=== PATIENT | female | born 1980 | race Caucasian/White ===

== ENCOUNTER 2018-05-10 06:33 | Emergency (ER) | payer SELFPAY ==
[2018-05-10 06:40] VITALS: TEMP 99
[2018-05-10] MEDS ORDERED: DiphenhydrAMINE 50 mg/ml Inj IVP STA (06:45)
[2018-05-10] MEDS ORDERED: Sodium Chloride 0.9% 1,000 ML IV ONE (06:46)
[2018-05-10] MEDS ORDERED: DiphenhydrAMINE 50 mg/ml Inj ONE (06:48)
--- NOTE | 2018-05-10 06:49 | C.PDOC ---
History Of Present Illness Patient presents with diffuse urticarial rash, of unknown etiology. Took some benadryl yesterday without relief. /10 discomfort. Very itchy. Speaking in complete sentences and tolerating own secretions Time Seen by Provider: 05/10/18 06:45 Chief Complaint (Nursing): Abnormal Skin Integrity History Per: Patient History/Exam Limitations: no limitations Onset/Duration Of Symptoms: Days (4) Current Symptoms Are (Timing): Still Present Quality Of Symptoms: Itching Severity: Moderate Pain Scale Rating Of: 4 Recent travel outside of the [place]: No Additional History Per: Patient Past Medical History Reviewed: Historical Data, Nursing Documentation, Vital Signs Vital Signs: Last Vital Signs Temp 99 F 05/10/18 06:36 Pulse 81 05/10/18 06:36 Resp 14 05/10/18 06:36 BP 104/69 05/10/18 06:36 Pulse Ox 99 05/10/18 06:36 Family History: States: No Known Family Hx - Social History Hx Alcohol Use: No Hx Substance Use: No Review Of Systems Constitutional: Negative for: Fever, Chills Eyes: Negative for: Vision Change ENT: Negative for: Throat Pain Cardiovascular: Negative for: Chest Pain Respiratory: Negative for: Shortness of Breath, Wheezing Gastrointestinal: Negative for: Nausea, Vomiting, Abdominal Pain Skin: Positive for: Rash (diffuse) Neurological: Negative for: Weakness Psych: Negative for: Anxiety Physical Exam - Physical Exam Appears: Non-toxic Skin: Warm, Dry, Rash (diffuse urticarial ) Eye(s): bilateral: Normal Inspection Oral Mucosa: Moist Tongue: Normal Appearing Lips: Normal Appearing, No Swelling Throat: No Erythema Neck: Supple Chest: Symmetrical Cardiovascular: Rhythm Regular Respiratory: No Rales, No Rhonchi, No Wheezing Gastrointestinal/Abdominal: Soft, No Tenderness, No Distention Extremity: Normal ROM Neurological/Psych: Oriented x3, Normal Speech, Normal Cognition Gait: Steady ED Course And Treatment O2 Sat by Pulse Oximetry: 99 Disposition - Disposition Disposition Time: 06:49 Condition: FAIR - Clinical Impression Clinical Impression: Urticaria, Allergic reaction Physician Patient Turnover Patient Signed Over To: Chauncey Lopez Jr. Handoff Comments: pending re-eval and disposition
--- NOTE | 2018-05-10 07:32 | C.PDOC ---
ED Additional Note - Date & Time of Evaluation Date of Evaluation: 05/10/18 Time of Evaluation: 07:31 - Physician Additional Note Physician Additional Note: Progress note: Patient signed out to me by overnight MD Dr. Cezar Washburn. Pt states that she is feeling better. No SOB. On exam, looks well, lungs are CTA B/L, no urticaria. I anticipate that pt will be d/c'ed home soon.
[2018-05-10 08:00] VITALS: BP 101/68; PULSE 74; RESP 16; O2SAT 100
== END 2018-05-10 07:58 | disposition home or self-care (01) ==
LOC: C.ER 06:33
DX: L50.0 Allergic urticaria (principal)
CPT/HCPCS: 96374; 96375; 99284; J1200; J2930; J7030

== ENCOUNTER 2018-05-26 17:29 | Emergency (ER) | payer OTHER ==
[2018-05-26 17:47] VITALS: BP 107/73; PULSE 73; RESP 18; TEMP 98.6; O2SAT 99
--- NOTE | 2018-05-26 19:00 | C.PDOC ---
History Of Present Illness 38 year old female patient presents to the ER with c/o left side back pain radiating to the posterior left leg. 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 Patient denies weakness and numbness. Chief Complaint (Nursing): Back Pain History Per: Patient History/Exam Limitations: no limitations Current Symptoms Are (Timing): Still Present Past Medical History Reviewed: Historical Data, Nursing Documentation, Vital Signs Vital Signs: Last Vital Signs Temp 98.6 F 05/26/18 17:45 Pulse 73 05/26/18 17:45 Resp 18 05/26/18 17:45 BP 107/73 05/26/18 17:45 Pulse Ox 99 05/26/18 19:07 Family History: States: No Known Family Hx - Social History Hx Alcohol Use: No Hx Substance Use: No - Immunization History Hx Tetanus Toxoid Vaccination: No Hx Influenza Vaccination: No Hx Pneumococcal Vaccination: No Review Of Systems Except As Marked, All Systems Reviewed And Found Negative. Musculoskeletal: Positive for: Back Pain (left side), Leg Pain (radiate to left leg pain ) Neurological: Negative for: Weakness, Numbness Physical Exam - Physical Exam Appears: Well, Non-toxic, No Acute Distress Skin: Normal Color, Warm, Dry Head: Atraumatic, Normacephalic Eye(s): bilateral: Normal Inspection Neck: Normal ROM, Supple Cardiovascular: Rhythm Regular Respiratory: Normal Breath Sounds Gastrointestinal/Abdominal: Soft, No Tenderness, No Other (bowel bladder dysfunction; saddle anesthesia ) Back: No CVA Tenderness, No Vertebral Tenderness, No Paraspinal Tenderness Extremity: Normal ROM (x4) Neurological/Psych: Oriented x3, Normal Speech, Normal Motor, Normal Sensation, Normal Reflexes Gait: Steady ED Course And Treatment O2 Sat by Pulse Oximetry: 99 (RA) Pulse Ox Interpretation: Normal Medical Decision Making Medical Decision Making: Impression: Left side back pain Plans: -- Flexeril -- Toradol Reassess: Patient is resting comfortably. Tolerating PO. Patient feels better and is comfortable going home. Patient is advised to f/u with PCP in 1-2 days. Disposition - Disposition Referrals: [facility] [Outside] [facility] at [facility] [Outside] Disposition: HOME/ ROUTINE Disposition Time: 18:00 Condition: GOOD Additional Instructions: PRACHI GARSIA, thank you for letting us take care of you today. Your provider was Clement Dias DO and you were treated for BACK PAIN. The emergency medical care you received today was directed at your acute symptoms. If you were prescribed any medication, please fill it and take as directed. It may take several days for your symptoms to resolve. Return to the Emergency Department if your symptoms worsen, do not improve, or if you have any other problems. Please contact your doctor or call one of the physicians/clinics you have been referred to that are listed on the Patient Visit Information form that is included in your discharge packet. Bring any paperwork you were given at discharge with you along with any medications you are taking to your follow up visit. Our treatment cannot replace ongoing medical care by a primary care provider outside of the emergency department. Thank you for allowing the [facility] team to be part of your care today. Follow up with the clinic this week for re-evaluation and further management. PRACHI GARSIA, nona por dejarnos atenderale alcantar. Galvan proveedor fue Clement Dias DO y usted recibi tratamiento para el [place]. La atencin mdica de emergencia que recibi hoy estaba dirigida a kyara sntomas agudos. Si le prescribieron algn medicamento, llnelo y tome segn las indicaciones. Kyara sntomas pueden tardar varios helton en resolverse. Regrese al Departamento de Emergencia si kyara sntomas empeoran, no mejoran o si tiene alg n otro problema. Comunquese con galvan mdico o llame a uzair de los mdicos / clnicas a los que gr sido referido que figura en el formulario de Informacin de visita del paciente que se incluye en galvan paquete de selina. Traiga todos los documentos que recibi al momento del selina junto con los medicamentos que est tomando en galvan visita de seguimiento. Nuestro tratamiento no puede reemplazar la atencin mdica en curso por un proveedor de atencin primaria fuera del departamento de emergencia. Nona por permitir que el equipo de [facility] sea parte de galvan cuidado hoy. Sharath un seguimiento con la clnica esta semana para khari nueva evaluacin y ms boaz. Prescriptions: Cyclobenzaprine [Cyclobenzaprine HCl] 10 mg PO Q8 PRN #20 tab PRN Reason: Muscle Spasm Ibuprofen [Motrin] 600 mg PO Q6 PRN #20 tab PRN Reason: Pain, Moderate (4-7) Instructions: Sciatica (DC) Forms: Gen Discharge Inst Estonian, [facility] (Estonian) Print Language: TANZANIAN - Clinical Impression Clinical Impression: Low back pain - Scribe Statement The provider has reviewed the documentation as recorded by the Scribe Torres Do Provider Attestation: All medical record entries made by the Scribe were at my direction and personally dictated by me. I have reviewed the chart and agree that the record accurately reflects my personal performance of the history, physical exam, medical decision making, and the department course for this patient. I have also personally directed, reviewed, and agree with the discharge instructions and disposition.
== END 2018-05-26 18:25 | disposition home or self-care (01) ==
LOC: C.ER 17:29
DX: M54.5 Low back pain (principal)
CPT/HCPCS: 96372; 99283; J1885